=== PATIENT | female | born 1980 | race African-American/Black ===

== ENCOUNTER 2016-07-12 10:12 | Emergency (ER) | payer MEDICAID ==
--- NOTE | 2016-07-12 11:03 | ER Document Report ---
ED General - General Chief Complaint: Toothache Stated Complaint: TOOTH PAIN/LEFT SIDE FACE SWELLING Time Seen by Provider: 07/12/16 11:02 Mode of Arrival: Ambulatory Information source: Patient Notes: Patient is a 36-year-old female who presents with left upper jaw pain and facial swelling. She states the pain started yesterday but she woke up with the facial swelling today. She has tried a Krista aspirin but that did not seem to help. She states she just moved here, has no transportation (rode the bus) and has no financial support. Denies fever, chills, changes in vision, nausea or vomiting. TRAVEL OUTSIDE OF THE [place] IN LAST 30 DAYS: No - Related Data Allergies/Adverse Reactions: No Known Allergies Allergy (Verified 07/12/16 10:15) Past Medical History - General Information source: Patient - Social History Smoking Status: Unknown if Ever Smoked Family History: Reviewed & Not Pertinent Patient has suicidal ideation: No Patient has homicidal ideation: No Renal/ Medical History: Denies: Hx Peritoneal Dialysis Review of Systems - Review of Systems Constitutional: See HPI EENT: See HPI Cardiovascular: No symptoms reported Respiratory: No symptoms reported Gastrointestinal: No symptoms reported Genitourinary: No symptoms reported Female Genitourinary: No symptoms reported Musculoskeletal: No symptoms reported Skin: No symptoms reported Hematologic/Lymphatic: No symptoms reported Neurological/Psychological: No symptoms reported Physical Exam - Vital signs Vitals: Temp Pulse Resp BP Pulse Ox 99.0 F 81 18 127/65 H 100 07/12/16 10:16 07/12/16 10:16 07/12/16 10:16 07/12/16 10:16 07/12/16 10:16 - Notes Notes: PHYSICAL EXAM: CONSTITUTIONAL: Alert and oriented, well-appearing and in no acute distress. Speaking in full sentences without difficulty. HENT: Normocephalic, atraumatic. Ear canals without erythema or foreign body, TMs pearly baptiste with good bony landmarks. Nares clear without erythema, septal hematoma or deviation, airway patent. Oropharynx clear without erythema, tonsilar exudate or malocclusion. Trachea midline. Uvula midline. Moist mucous membranes. Dental caries to Teeth #15-16 with gingival and buccal swelling that extends up to zygomatic arch. No palpable area of fluctuance concerning for abscess. No orbital swelling. EYES: Pupils equal round and reactive to light, EOM intact. Sclera anicteric, conjunctiva are normal. No entrapment. NECK: supple without lymphadenopathy. No midline tenderness or paraspinous muscle spasms. No step-offs or deformities. ROM intact. HEART: Regular rate and rhythm without murmurs. LUNGS: CTAB and equal. No wheezes, rales or rhonchi. BACK: nontender, no paraspinous spasm, 5+/5 strengths, DTRs 2+, SLR -. EXTREMITIES: Normal range of motion, no pitting edema. No cyanosis. Cap Refill < 3 seconds. NEURO: Cranial nerves grossly intact. Normal sensory/motor exams. PSYCH: Normal mood, normal affect. SKIN: Warm and dry. Normal turgor. No rashes or lesions noted. Course - Re-evaluation Re-evalutation: 07/12/16 11:23 Patient seen and examined. Dental caries to Teeth #15-16 with gingival and buccal swelling that extends up to zygomatic arch. No palpable area of fluctuance concerning for abscess. No orbital swelling. Will give dose of antihistamine here and initial dose of antibiotic, and script for same with abx and pain medication. At this time, will discharge with return precautions and follow-up recommendations. Verbal discharge instructions given at the bedside and opportunity for questions given. Medication warnings reviewed. Patient is in agreement with this plan and has verbalized understanding of return precautions and the need for primary care follow-up in the next 24-72 hours. - Vital Signs Vital signs: Temp Pulse Resp BP Pulse Ox 99.0 F 81 18 127/65 H 100 07/12/16 10:16 07/12/16 10:16 07/12/16 10:16 07/12/16 10:16 07/12/16 10:16 Discharge - Discharge Clinical Impression: Toothache, Left facial swelling, Dental caries Condition: Stable Disposition: HOME, SELF-CARE Additional Instructions: TOOTHACHE: Your pain is due to dental decay. The tooth must be repaired in order for you to feel better. You will, therefore, be referred to a dentist. We do not have dentists on the staff at [facility]. Severe swelling or drainage around a tooth usually means a dental abscess. This also requires evaluation and treatment by the dentist, but antibiotics may be prescribed while awaiting dental treatment. You should be rechecked immediately if you develop major swelling of the face, increasing pain, a lump in the jaw or gums, headache, difficulty swallowing, or fever. FOLLOW-UP CARE: You have been referred for follow-up care to the dentists listed below. Call the dentists office for an appointment as you were instructed or within the next two days. If you experience worsening or a significant change in your symptoms, notify the physician immediately or return to the Emergency Department at any time for re-evaluation. [facility] [address] [place], [place] Saturday mornings, by appointment [facility] [address] [place] [address] [facility] [address] [facility] [address] [facility] [address] [email or web address] [address] [facility] [place] [address] Saturday- 8:00am to 5:00 pm [facility] see [facility] other [facility]. Charges based on income and family size and accepts Medicare, Medicaid, and Insurances Will pull molars [facility] [address] Hours of Operation 8:00 am - 4:30 pm days The following dental offices accept Medicaid: [facility] [address]. [address] Dr. Suero Dr. Sebastian Dr. Cobb Stanislav Richard Lutsavage, and Jeanette oral surgery Dr. Wheatley ([place]) Dr. Hu ([place] B[place]) [facility] Drs. Clemons ([place]) Dr. Boyle ([place]) [facility] Dr. Dalton ([place]) Drs. aPng and ([place]) Medicaid Care Line Prescriptions: Diphenhydramine HCl [Benadryl 25 mg Capsule] 25 mg PO Q4HP PRN #20 capsule PRN Reason: Acetaminophen with Codeine [Tylenol #3 Tablet] 1 each PO Q6HP PRN #14 tablet PRN Reason: Penicillin V Potassium [Penicillin Vk 250 mg Tablet] 250 mg PO Q6 #40 tablet Forms: Elevated Blood Pressure
[2016-07-12] MEDS ORDERED: PENICILLIN V POTASSIUM 500 MG TABLET PO ONE (11:26)
[2016-07-12] MEDS ORDERED: DIPHENHYDRAMINE HCL 25 MG CAPSULE PO ONE (11:26)
[2016-07-12 11:59] VITALS: BP 138/88
== END 2016-07-12 11:59 | disposition home or self-care (01) ==
LOC: ER 10:12
DX: K08.9 Disorder of teeth and supporting structures, unspecified (principal); R22.0 Localized swelling, mass and lump, head; K02.9 Dental caries, unspecified
CPT/HCPCS: 99282

== ENCOUNTER 2016-07-27 08:50 | Emergency (ER) | payer MEDICAID ==
[2016-07-27 08:56] VITALS: BP 123/74
[2016-07-27] MEDS ORDERED: FAMOTIDINE 20 MG TABLET PO ONE (09:36)
[2016-07-27] MEDS ORDERED: PREDNISONE 20 MG TABLET PO ONE (09:36)
[2016-07-27] MEDS ORDERED: LORATADINE 10 MG TABLET PO ONE (09:36)
--- NOTE | 2016-07-27 09:45 | ER Document Report ---
HPI - HPI Patient complains to provider of: rash Onset: Yesterday Onset/Duration: Sudden, Intermittent Quality of pain: No pain Severity: None Pain Level: 0 Associated Symptoms: None Exacerbated by: Other - Scratching Relieved by: Denies Similar symptoms previously: No Recently seen / treated by doctor: No - ROS ROS below otherwise negative: Yes Systems Reviewed and Negative: Yes All other systems reviewed and negative - CONSTITUTIONAL Constitutional: DENIES: Fever - EENT EENT: DENIES: Congestion - NEURO Neurology: DENIES: Headache - CARDIOVASCULAR Cardiovascular: DENIES: Chest pain - RESPIRATORY Respiratory: DENIES: Trouble Breathing - GASTROINTESTINAL Gastrointestinal: DENIES: Abdominal Pain - URINARY Urinary: DENIES: Dysuria - MUSCULOSKELETAL Musculoskeletal: DENIES: Extremity pain - DERM Skin Color: Normal Skin Problems: Rash - Hives Past Medical History - General Information source: Patient - Social History Smoking Status: Never Smoker Frequency of alcohol use: None Drug Abuse: None Lives with: Family Family History: Reviewed & Not Pertinent Patient has suicidal ideation: No Patient has homicidal ideation: No - Medical History Medical History: Negative Renal/ Medical History: Denies: Hx Peritoneal Dialysis Surgical Hx: Negative Vertical Provider Document - CONSTITUTIONAL Agree With Documented VS: Yes Exam Limitations: No Limitations General Appearance: WD/WN, No Apparent Distress - INFECTION CONTROL TRAVEL OUTSIDE OF THE [place] IN LAST 30 DAYS: No - HEENT HEENT: Atraumatic, Normal ENT Exam, Normocephalic - RESPIRATORY Respiratory: Breath Sounds Normal, No Respiratory Distress O2 Sat by Pulse Oximetry: 100 - CARDIOVASCULAR Cardiovascular: Regular Rate, Regular Rhythm - GI/ABDOMEN Gastrointestinal: Abdomen Soft - MUSCULOSKELETAL/EXTREMETIES Musculoskeletal/Extremeties: CARLY KC - NEURO Level of Consciousness: Awake, Alert, Appropriate - DERM Integumentary: Warm, Dry, No Rash - Scattered hives to thighs, right arm, and abdomen. Pt denies known cause. Course - Vital Signs Vital signs: Temp Pulse Resp BP Pulse Ox 98.4 F 60 16 123/74 100 07/27/16 08:51 07/27/16 08:51 07/27/16 08:51 07/27/16 08:51 07/27/16 08:51 Discharge - Discharge Clinical Impression: Hives Condition: Good Disposition: HOME, SELF-CARE Additional Instructions: OTC Benadryl 1 or 2 tabs every 4-6 hours for itching OTC Pepcid 20 mg every 12 hours for itching OTC hydrocortisone cream to rash You have been given prednisone today, start prescription tomorrow morning Try to determine because of hives Follow-up with your primary care doctor for recheck Return as needed Prescriptions: Prednisone [Deltasone 10 mg Tablet] 10 mg PO ASDIR #21 tablet
== END 2016-07-27 10:12 | disposition home or self-care (01) ==
LOC: ER 08:50
DX: L50.9 Urticaria, unspecified (principal); R21 Rash and other nonspecific skin eruption
CPT/HCPCS: 99283; J7512

== ENCOUNTER 2017-10-08 13:49 | Emergency (ER) | payer MEDICAID ==
[2017-10-08 14:07] VITALS: BP 130/77
[2017-10-08 14:25] LABS: APPEARANCE,URINE CLOUDY; BILIRUBIN,URINE NEGATIVE (NEGATIVE); COLOR,URINE YELLOW; GLUCOSE, URINE NEGATIVE (NEGATIVE); KETONES,URINE NEGATIVE (NEGATIVE); LEUKOCYTE ESTERASE,URINE TRACE (NEGATIVE); NITRITE,URINE NEGATIVE (NEGATIVE); PROTEIN,URINE NEGATIVE (NEGATIVE); URINE SPECIFIC GRAVITY 1.016
[2017-10-08] MEDS ORDERED: ACETAMINOPHEN 325 MG TABLET PO ONE (15:10)
--- NOTE | 2017-10-08 15:40 | ER Document Report ---
ED Headache - General Chief Complaint: Low Back Pain Stated Complaint: HEADACHE Time Seen by Provider: 10/08/17 15:10 Mode of Arrival: Ambulatory Information source: Patient Notes: 37-year-old female presented to ED for complaint of headache and other symptoms of . She states she has chronic back pain but she has been having a different back pain for the last couple days. TRAVEL OUTSIDE OF THE [place] IN LAST 30 DAYS: No - HPI Patient complains to provider of: Headache, Other - Concerned that she is Patient reports: Hx chronic headaches Onset: Other - Intermittent Onset was: Gradual Timing: Gone now Quality of pain: No pain Severity: None Pain Level: Denies Associated symptoms: Other Exacerbated by: Light, Noise, Movement, Position Similar symptoms previously: Yes Recently seen / treated by doctor: No - Related Data Allergies/Adverse Reactions: No Known Allergies Allergy (Verified 07/27/16 08:53) Past Medical History - General Information source: Patient - Social History Smoking Status: Never Smoker Cigarette use (# per day): No Chew tobacco use (# tins/day): No Smoking Education Provided: No Frequency of alcohol use: None Drug Abuse: None Lives with: Family Family History: Reviewed & Not Pertinent Patient has suicidal ideation: No Patient has homicidal ideation: No - Past Medical History Cardiac Medical History: Reports: None Pulmonary Medical History: Reports: None EENT Medical History: Reports: None Neurological Medical History: Reports: None Endocrine Medical History: Reports: None Renal/ Medical History: Reports: None Malignancy Medical History: Reports: None GI Medical History: Reports: None Musculoskeletal Medical History: Reports None Skin Medical History: Reports None Psychiatric Medical History: Reports: None Traumatic Medical History: Reports: None Infectious Medical History: Reports: None Surgical Hx: Negative Past Surgical History: Reports: None - Immunizations Immunizations up to date: Yes Hx Diphtheria, Pertussis, Tetanus Vaccination: No Review of Systems - Review of Systems Constitutional: No symptoms reported EENT: No symptoms reported Cardiovascular: No symptoms reported Respiratory: No symptoms reported Gastrointestinal: No symptoms reported Genitourinary: No symptoms reported Female Genitourinary: No symptoms reported Musculoskeletal: No symptoms reported Skin: No symptoms reported Hematologic/Lymphatic: No symptoms reported Neurological/Psychological: No symptoms reported. denies: Headaches -: Yes All other systems reviewed and negative Physical Exam - Vital signs Vitals: Temp Pulse Resp BP Pulse Ox 98.7 F 85 16 130/77 H 99 10/08/17 14:04 10/08/17 14:04 10/08/17 14:04 10/08/17 14:04 10/08/17 14:04 Interpretation: Normal - General General appearance: Appears well, Alert - HEENT Head: Normocephalic, Atraumatic Eyes: Normal Pupils: PERRL - Respiratory Respiratory status: No respiratory distress Chest status: Nontender Breath sounds: Normal Chest palpation: Normal - Cardiovascular Rhythm: Regular Heart sounds: Normal auscultation Murmur: No - Abdominal Inspection: Normal Distension: No distension Bowel sounds: Normal Tenderness: Nontender Organomegaly: No organomegaly - Back Back: Normal, Nontender - Extremities General upper extremity: Normal inspection, Nontender, Normal color, Normal ROM , Normal temperature General lower extremity: Normal inspection, Nontender, Normal color, Normal ROM , Normal temperature, Normal weight bearing. 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 She denies any nausea or vomiting. She states she was concerned that she was again and she already has 4 children. States she has chronic back pain and she was concerned that her back pain was from not her chronic pain. Patient is having no pain or discomfort at this time. - Vital Signs Vital signs: Temp Pulse Resp BP Pulse Ox 98.7 F 85 16 130/77 H 99 10/08/17 14:04 10/08/17 14:04 10/08/17 14:04 10/08/17 14:04 10/08/17 14:04 - Laboratory Laboratory results interpreted by me: 10/08/17 14:10 Urine Urobilinogen 2.0 H Ur Leukocyte Esterase TRACE H Urine HCG, Qual POSITIVE H Discharge - Discharge Clinical Impression: Headache Qualifiers: Headache type: unspecified Headache chronicity pattern: unspecified pattern Intractability: not intractable Qualified Code(s): R51 - Headache Qualifiers: Weeks of gestation: less than 8 weeks Qualified Code(s): Z3A.01 - Less than 8 weeks gestation of Condition: Stable Disposition: HOME, SELF-CARE Instructions: Family Physicians / Practices, [facility] Additional Instructions: HEADACHE: The physician does not feel that the headache you are experiencing has a serious underlying cause. Most headaches are due to emotional stress, with resultant muscle tension (tension headache). Occasionally, headaches are secondary to changes in the blood vessels of the scalp (vascular headache and migraine headache). Sometimes, a headache is the first symptom of another developing illness, such as a viral infection. You have no evidence of stroke, bleeding, meningitis, or other serious cause of your headache. The treatment of headaches varies with the severity and cause of the pain. Not all headaches need pain shots. In fact, there is evidence that using narcotics for headaches may make them worse in the long run. The physician will determine the therapy that's in your best interest. If you develop a fever, if the headache is different from any you've previously experienced, or if the headache progressively worsens, then call your physician at once or go to the emergency room. You are . care is best started as early in as possible. If you're unsure about continuing this , you should discuss this with your physician or with plant security guard at [facility]. You should take only medications approved by your physician. Acetaminophen can safely be taken for minor pains. As a rule, medication for chronic conditions such as asthma or seizures can safely be continued. You should discuss with the physician every medicine you take. Any regular exercise program can be continued. Talk to your physician, however, before engaging in competitive or demanding sports. Alcohol, smoking, and "street drugs" are dangerous to your baby. Cocaine is especially dangerous. Don't use any illicit drugs! Acetaminophen Acetaminophen may be taken for pain relief or fever control. It's much safer than aspirin, offering a wider range of "safe" dosages. It is safe during . Some brand names are Tylenol, Panadol, Datril, Anacin 3, Tempra, and Liquiprin. Acetaminophen can be repeated every four hours. The following are maximum recommended dosages: WEIGHT Dose Drops Elixir Chewable( 80mg) (LBS.) drprs=droppers tsp=teaspoon 6 40 mg .4 ml (1/2) 6-11 80 mg .8 ml (full) 1/2 tsp 1 tab 12-16 120 mg 1 1/2 drprs 3/4 tsp 1 1/2 tabs 17-23 160 mg 2 drprs 1 tsp 2 tabs 24-30 240 mg 3 drprs 1 1/2 tsp 3 tabs 30-35 320 mg 2 tsp 4 tabs 36-41 360 mg 2 1/4 tsp 4 1 /2 tabs 42-47 400 mg 2 1/2 tsp 5 tabs 48-53 480 mg 3 tsp 6 tabs 54-59 520 mg 3 1/4 tsp 6 1 /2 tabs 60-64 560 mg 3 1/2 tsp 7 tabs 65-70 600 mg 3 3/4 tsp 7 1 /2 tabs 71-76 640 mg 4 tsp 8 tabs 77-82 720 mg 4 1/2 tsp 9 tabs 83-88 800 mg 5 tsp 10 tabs >89 pounds or adults 650 mg to 900 mg Acetaminophen can be repeated every four hours. Maximum daily dose not to exceed 4000 mg. These maximum recommended dosages are slightly higher than the dosages written on the product container, but these dosages are very safe and well below the toxic dosage for acetaminophen. FOLLOW-UP CARE: If you have been referred to a physician for follow-up care, call the physician s office for an appointment as you were instructed or within the next two days. If you experience worsening or a significant change in your symptoms, notify the physician immediately or return to the Emergency Department at any time for re-evaluation.
== END 2017-10-08 15:53 | disposition home or self-care (01) ==
LOC: ER 13:49
DX: O26.891 Other specified pregnancy related conditions, first trimester (principal); R51 Headache; M54.5 Low back pain; G89.29 Other chronic pain; M54.9 Dorsalgia, unspecified; Z3A.01 Less than 8 weeks gestation of pregnancy
CPT/HCPCS: 99284; 81025; 81001; J3490

== ENCOUNTER 2018-06-05 05:19 | Inpatient (IN) | payer MEDICAID ==
[2018-06-04 11:32] LABS: ABSOLUTE EOSINOPHILS # (AUTO) 0.1 10^3/uL (0.0-0.6); ABSOLUTE LYMPHOCYTES (AUTO) 1.4 10^3/uL (0.5-4.7); ABSOLUTE MONOCYTES (AUTO) 0.5 10^3/uL (0.1-1.4); ABSOLUTE NEUT (AUTO) 4.3 10^3/uL (1.7-8.2); BASOPHILS % (AUTO) 0.5 % (0-2); EOSINOPHILS % (AUTO) 1.6 % (0-6); HEMATOCRIT 29.9 % (36.0-47.0); HEMOGLOBIN 9.9 g/dL (12.0-15.5); LYMPHOCYTES % (AUTO) 22.3 % (13-45); MEAN CORPUSCULAR HEMOGLOBIN 22.2 pg (27.0-33.4); MEAN CORPUSCULAR HGB CONC 32.9 g/dL (32.0-36.0); MEAN CORPUSCULAR VOLUME 68 fl (80-97); MONOCYTES % (AUTO) 7.5 % (3-13); PLATELET COUNT 215 10^3/uL (150-450); RED BLOOD COUNT 4.43 10^6/uL (3.72-5.28); RED CELL DISTRIBUTION WIDTH 19.7 % (11.5-14.0); SEGMENTED NEUTROPHILS % (AUTO) 68.1 % (42-78); TOTAL CELLS COUNTED % (AUTO) 100 %; WHITE BLOOD COUNT 6.4 10^3/uL (4.0-10.5)
[2018-06-04 11:32] LABS: APPEARANCE,URINE SLIGHTLY-CLOUDY; BILIRUBIN,URINE NEGATIVE (NEGATIVE); COLOR,URINE YELLOW; GLUCOSE, URINE NEGATIVE (NEGATIVE); KETONES,URINE NEGATIVE (NEGATIVE); LEUKOCYTE ESTERASE,URINE NEGATIVE (NEGATIVE); NITRITE,URINE NEGATIVE (NEGATIVE); PROTEIN,URINE NEGATIVE (NEGATIVE); URINE SPECIFIC GRAVITY 1.012
[2018-06-04 12:13] LABS: URINE AMPHETAMINES SCREEN NEGATIVE; URINE BARBITURATES SCREEN NEGATIVE; URINE BENZODIAZEPINES SCREEN NEGATIVE; URINE COCAINE SCREEN NEGATIVE; URINE MARIJUANA (THC) SCREEN NEGATIVE; URINE METHADONE SCREEN NEGATIVE; URINE PHENCYCLIDINE SCREEN NEGATIVE
[2018-06-05] MEDS ORDERED: CEFAZOLIN 1 GM/D5W RTU 1 GM/50 ML RTUPB IV ONE (05:45)
[2018-06-05] MEDS ORDERED: RINGERS SOLUTION,LACTATED 1,000 ML IV ONE (06:00)
[2018-06-05] MEDS: LACTATED RINGERS 1000 ML IV PRN ×2 (06:45→14:07)
[2018-06-05] MEDS ORDERED: PROMETHAZINE HCL INJ 25 MG/1 ML VIAL IV PRN ×3 (07:39→08:59)
[2018-06-05] MEDS ORDERED: FENTANYL CITRATE INJ/PF 100 MCG/2 ML AMPUL IV PRN ×3 (07:39)
[2018-06-05] MEDS ORDERED: MEPERIDINE HCL/PF INJ 25 MG/1 ML DISP.SYRIN IV PRN (07:39)
[2018-06-05] MEDS ORDERED: DIPHENHYDRAMINE HCL 50 MG/ML VIAL IV PRN (07:39)
[2018-06-05] MEDS ORDERED: MORPHINE SULFATE 10 MG/ML INJ IV PRN (07:39)
[2018-06-05] MEDS ORDERED: MIDAZOLAM 2 MG/2 ML INJ ONE (08:06)
[2018-06-05] MEDS ORDERED: OXYTOCIN 10 UNIT/ML VIAL ONE (08:07)
[2018-06-05] MEDS ORDERED: FENTANYL CITRATE INJ/PF 100 MCG/2 ML AMPUL ONE (08:07)
[2018-06-05] MEDS ORDERED: ONDANSETRON HCL INJ/PF 4 MG/2 ML SDV ONE (08:08)
[2018-06-05] MEDS ORDERED: OXYTOCIN/NORMAL SALINE 20 UNIT/1,000 ML RTUINJ ONE (08:08)
[2018-06-05] MEDS ORDERED: MORPHINE SULFATE 10 MG/ML INJ ONE (08:08)
[2018-06-05] MEDS ORDERED: SIMETHICONE 80 MG TAB.CHEW PO PRN (08:59)
[2018-06-05] MEDS ORDERED: ACETAMINOPHEN 1,000 MG/100 ML RTUPB IV PRN (08:59)
[2018-06-05] MEDS ORDERED: MEASLES,MUMPS&RUBELLA VACC/PF 0.5 ML VIAL SUBCUT PRN (08:59)
[2018-06-05] MEDS ORDERED: MORPHINE SULFATE 10 MG/ML INJ IM PRN (08:59)
[2018-06-05] MEDS ORDERED: DIPH/PERTUSS(ACELL)/TETANUS VAC/PF 0.5 ML SYR (>=10YO) IM PRN (08:59)
[2018-06-05] MEDS ORDERED: OXYTOCIN/NORMAL SALINE 20 UNIT/1,000 ML RTUINJ IV PRN (08:59)
[2018-06-05] MEDS ORDERED: OXYCODONE-ACETAMINOPHEN 5-325 MG TABLET PO PRN (08:59)
[2018-06-05] MEDS ORDERED: ACETAMINOPHEN 325 MG TABLET PO PRN (08:59)
--- NOTE | 2018-06-05 09:03 | PDOC DELIVERY SUMMARY ---
Delivery Summary - Maternal Hx : Hx # Term Pregnancies: 4 Hx Total # of Abortions (Sponateous & Elective): 1 SALOMON: 06/10/18 Gestational Age: 39+2 Risk Factors: Other - prior history of shoulder dystocia and desire for sterilization Ruptured Membranes: AROM Fluids: Clear - Delivery Labor: Not In Labor Presentation: Vertex Heart Rate Monitoring: Done Pre-Operatively, Externally Support Person Present: Yes : Scheduled Placenta: Within Normal Limits Number of Vessels (Cord): 3 - Medications Type of Anesthesia:: Spinal - pt had syncopal episode after spinal
[2018-06-05] MEDS ORDERED: ACETAMINOPHEN 1,000 MG/100 ML RTUPB IV ONE (09:14)
--- NOTE | 2018-06-05 09:14 | OPERATIVE REPORT E ---
Operative Report NAME: BABITA REID : [id number] AGE: 38Y DATE OF SURGERY: 06/05/2018 ROOM: PREOPERATIVE DIAGNOSES: 1. INTRAUTERINE AT TERM WITH PRIOR *------* 2. DESIRE FOR STERILIZATION. POSTOPERATIVE DIAGNOSES: 1. INTRAUTERINE AT TERM WITH PRIOR *------* 2. DESIRE FOR STERILIZATION. OPERATION: Primary low-transverse with delivery of viable female, weighing 7 pounds, Apgars of 8 and 9. SURGEON: Aldair YEBOAH M.D. ANESTHESIA: Spinal. ESTIMATED BLOOD LOSS: Less than 800 mL. TISSUE REMOVED: Placenta. PROCEDURE: The patient was placed in a supine position and rolled on her right side, prepped and draped in the usual sterile fashion. The Pfannenstiel incision was made, extended through the subcutaneous tissue and fascia with sharp dissection. Fascia was sharply divided. Rectus muscle was bluntly and sharply divided. Parietal peritoneum was entered with sharp dissection. The uterus was nicked in the midline and extended bilaterally. Infant was then delivered through uterine and abdominal incision. The cord was clamped, infant was passed from the table. The placenta was then manually extracted. The uterus was closed in 2 layers using 0 Vicryl first a running stitch, and the second a Lembert stitch imbricating the first layer. There were several areas of bleeding noted which was controlled with [id number] of 0-Vicryl. Hemostasis was noted. The right fallopian tube was occluded in the proximal portion with Filshie clip and repeated on the left. Both tubes identified through the fimbria prior to and after banding. The fascia was then closed with 0 Vicryl and the skin was closed with subcutaneous absorbable sonia. Patient's urine remained clear throughout the procedure. She was taken to the recovery room in good condition. went to nursery in good condition. DICTATING PHYSICIAN: Aldair YEBOAH M.D. [id number] PHY#: [id number] ID: [id number] JOB#: [id number] ACCT: [id number] cc:Aldair YEBOAH M.D. >
[2018-06-05] MEDS ORDERED: PHENYLEPHRINE HCL INJ/PF 10 MG/1 ML SDV ONE (09:52)
[2018-06-05] MEDS ORDERED: KETOROLAC TROMETHAMINE INJ/PF 30 MG/1 ML SDV ONE (10:43)
[2018-06-05] MEDS: DOCUSATE SODIUM 100 MG CAPSULE PO SCH (17:32)
[2018-06-05] MEDS: KETOROLAC TROMETHAMINE INJ/PF 30 MG/1 ML SDV IV SCH (17:32)
[2018-06-05] MEDS: OXYCODONE-ACETAMINOPHEN 5-325 MG TABLET PO PRN (21:15)
[2018-06-06] MEDS: KETOROLAC TROMETHAMINE INJ/PF 30 MG/1 ML SDV IV SCH ×3 (02:11→18:44)
[2018-06-06] MEDS ORDERED: LIDOCAINE 0.5% INJ-PF (5 MG/ML) 50 ML SDV SUBCUT PRN (05:00)
[2018-06-06 06:30] LABS: HEMATOCRIT 24.9 % (36.0-47.0); HEMOGLOBIN 8.3 g/dL (12.0-15.5); MEAN CORPUSCULAR HGB CONC 33.2 g/dL (32.0-36.0); MEAN CORPUSCULAR VOLUME 66 fl (80-97); PLATELET COUNT 190 10^3/uL (150-450); RED BLOOD COUNT 3.76 10^6/uL (3.72-5.28); RED CELL DISTRIBUTION WIDTH 19.9 % (11.5-14.0); WHITE BLOOD COUNT 11.6 10^3/uL (4.0-10.5)
--- NOTE | 2018-06-06 09:23 | PDOC PROGRESS REPORT ---
Subjective-OB Progress Note for:: 06/06/18 Subjective: Doing well, OOB walking to nursery, pain under control, does not like hospital food, informed she could have outside food, bottle feeding Physical Exam (OB) Vital Signs: Temp Pulse Resp BP Pulse Ox 97.5 F 72 18 134/77 H 98 06/06/18 07:23 06/06/18 07:23 06/06/18 07:23 06/06/18 07:23 06/06/18 07:23 Intake & Output 06/05/18 06/06/18 06/07/18 06:59 06:59 06:59 Intake Total 3550 Output Total 1925 Balance 1625 Weight 106.594 kg - PIH/Pre-Eclampsia DTR's: 2 + Clonus: Negative Headache: Absent Epigastric Pain: No Visual Changes: No - Dressing Removed: No Incision: Dressing - Lochia Lochia Amount: Small 10-25 ml Lochia Color: Rubra/Red - Abdomen Description: Soft, Round Hernia Present: No Fundal Description: Firm, Midline Fundal Height: u/u - u/2 Objective-Diagnostic Laboratory: 06/06/18 05:21 06/06/18 05:21 WBC 11.6 H RBC 3.76 Hgb 8.3 L Hct 24.9 L MCV 66 L MCH 22.0 L MCHC 33.2 RDW 19.9 H Plt Count 190 Assessment and Plan(PN) - Assessment and Plan (1) History of sickle cell trait Is this a current diagnosis for this admission?: Yes (2) Delivery by elective caesarean section Is this a current diagnosis for this admission?: Yes - Time Spent with Patient Time with patient: Less than 15 minutes Medications reviewed and adjusted accordingly: Yes - Disposition Anticipated Discharge: Home Within: within 24 hours
[2018-06-06] MEDS: PRENATAL VITAMIN W DHA CAPSULE PO SCH (10:10)
[2018-06-06] MEDS: DOCUSATE SODIUM 100 MG CAPSULE PO SCH ×2 (10:10→18:34)
[2018-06-06] MEDS: IBUPROFEN 800 MG TABLET PO SCH ×3 (12:33→23:26)
[2018-06-06] MEDS: OXYCODONE-ACETAMINOPHEN 5-325 MG TABLET PO PRN (12:36)
[2018-06-07] MEDS: OXYCODONE-ACETAMINOPHEN 5-325 MG TABLET PO PRN ×2 (04:03→10:15)
--- NOTE | 2018-06-07 08:08 | PDOC PROGRESS REPORT ---
Subjective-OB Progress Note for:: 06/07/18 Subjective: laying in bed, doing well, no c/o, eating, + gas, ambulating Physical Exam (OB) Vital Signs: Temp Pulse Resp BP Pulse Ox 98 F 68 16 120/59 L 98 06/07/18 03:29 06/07/18 03:29 06/07/18 03:29 06/07/18 03:29 06/07/18 03:29 Intake & Output 06/06/18 06/07/18 06/08/18 06:59 06:59 06:59 Intake Total 3550 1960 Output Total 1925 Balance 1625 1959 - PIH/Pre-Eclampsia DTR's: 2 + Clonus: Negative Headache: Absent Epigastric Pain: No Visual Changes: No - Dressing Removed: Yes - mediport dressing Incision: Dressing Closure Type: Surgical Glue - Lochia Lochia Amount: Scant < 10 ml Lochia Color: Rubra/Red - Abdomen Description: Soft Hernia Present: No Fundal Description: Firm Fundal Height: u/u - u/2 Objective-Diagnostic Laboratory: 06/06/18 05:21 Assessment and Plan(PN) - Assessment and Plan (1) History of sickle cell trait Is this a current diagnosis for this admission?: Yes (2) Delivery by elective caesarean section Is this a current diagnosis for this admission?: Yes - Time Spent with Patient Time with patient: Less than 15 minutes Medications reviewed and adjusted accordingly: Yes - Disposition Anticipated Discharge: Home Within: within 24 hours
--- NOTE | 2018-06-07 08:10 | PDOC DISCHARGE SUMMARY ---
Final Diagnosis Discharge Date: 06/07/18 - Final Diagnosis (1) History of sickle cell trait Is this a current diagnosis for this admission?: Yes (2) Delivery by elective caesarean section Is this a current diagnosis for this admission?: Yes Discharge Data - Discharge Medication Prescriptions: Oxycodone HCl/Acetaminophen [Percocet 5-325 mg Tablet] 1 tab PO Q4HP PRN #20 tablet PRN Reason: Ibuprofen [Motrin 800 mg Tablet] 800 mg PO Q6 #30 tablet Home Medications: Pnv No.95/Ferrous Fum/Folic AC [ Caplet] 1 each PO DAILY 06/04/18 Ibuprofen [Motrin 800 mg Tablet] 800 mg PO Q6 #30 tablet 06/07/18 Oxycodone HCl/Acetaminophen [Percocet 5-325 mg Tablet] 1 tab PO Q4HP PRN #20 tablet 06/07/18 Gestational Age: 40 Reason(s) for Admission: Ceasarean Section-Primary, Tubal Ligation Procedures: NST, Ultrasound Intrapartum Procedure(s): : Low Cervical, Transverse - Diagnosis Test Laboratory: Temp Pulse Resp BP Pulse Ox 98 F 68 16 120/59 L 98 06/07/18 03:29 06/07/18 03:29 06/07/18 03:29 06/07/18 03:29 06/07/18 03:29 06/06/18 05:21 RBC 3.76 Hgb 8.3 L Hct 24.9 L - Discharge information/Instructions Discharge Activity: Activity As Tolerated, No Lifting Over 10 Pounds, No Lifting/Push/Pulling, Pelvic Rest Discharge Diet: As Tolerated, Regular Disposition: HOME, SELF-CARE Follow up with: [facility] in: 1, Weeks
[2018-06-07 08:49] VITALS: BP 120/59
[2018-06-07] MEDS: IBUPROFEN 800 MG TABLET PO SCH (09:40)
[2018-06-07] MEDS: DOCUSATE SODIUM 100 MG CAPSULE PO SCH (10:15)
[2018-06-07] MEDS: PRENATAL VITAMIN W DHA CAPSULE PO SCH (10:15)
== END 2018-06-07 13:45 | disposition home or self-care (01) | DRG 785 ==
LOC: 2S 05:19
PROVIDERS: ADMIT Obstetrics & Gynecology Gynecology; ATTEND Obstetrics & Gynecology Gynecology
PROC: 0UL70CZ Occlusion of Bilateral Fallopian Tubes with Extraluminal Device, Open Approach (ICD-10-PCS; 2018-06-05)
PROC: 4A1HXCZ Monitoring of Products of Conception, Cardiac Rate, External Approach (ICD-10-PCS; 2018-06-05)
PROC: 10D00Z1 Extraction of Products of Conception, Low, Open Approach (ICD-10-PCS; principal; 2018-06-05 08:15)
DX: O99.02 Anemia complicating childbirth (principal); Z30.2 Encounter for sterilization; D57.3 Sickle-cell trait; Z3A.39 39 weeks gestation of pregnancy; Z37.0 Single live birth
CPT/HCPCS: 1961; 36415; 59025; 80307; 81001; 85025; 85027; 86850; 86900; 86901; 94799; J0131; J1885; J2250; J2270; J2370; J2405; J2590; J3010; J3490; J7120